=== PATIENT | male | born 2000 | race Caucasian/White ===

== ENCOUNTER 2021-08-01 12:03 | Emergency (ER) | payer SELFPAY ==
[~2021-08-01] VITALS: Ht 167.6 cm; Wt 70.3 kg
[2021-08-01 12:21] VITALS: BP 140/81
--- NOTE | 2021-08-01 13:18 | NUR ---
PT AMB TO [facility]
--- NOTE | 2021-08-01 13:20 | NUR ---
BIB SELF C/O LEFT FLANK PAIN X 2 DAYS. DENIES N/V/D; SKIN IS PINK/WARM/DRY; AAOX4 WITH EVEN AND STEADY GAIT; LUNGS CLEAR BL; HR EVEN AND REGULAR; PT DENIES ANY FEVER, CP, SOB, OR COUGH AT THIS TIME; PATIENT STATES PAIN OF 5/10 AT THIS TIME.
[2021-08-01] MEDS ORDERED: METH-1681 PO (13:29)
[2021-08-01] MEDS ORDERED: LIDO1ADH47 TP (13:29)
[2021-08-01] MEDS ORDERED: NAPR-54 PO (13:29)
[2021-08-01 13:36] VITALS: BP 140/81
--- NOTE | 2021-08-01 13:37 | NUR ---
Patient discharged with v/s stable. Written and verbal after care instructions given and explained. Patient alert, oriented and verbalized understanding of instructions. Ambulatory with steady gait. All questions addressed prior to discharge. ID band removed. Patient advised to follow up with PMD. Rx of LIDOCAINE, METHOCARBAMOL, NAPROXEN given. Patient educated on indication of medication including possible reaction and side effects. Opportunity to ask questions provided and answered.
== END 2021-08-01 13:37 | disposition home or self-care (01) ==
LOC: MED 12:03
DX: S39.012A Strain of muscle, fascia and tendon of lower back, initial encounter (principal); R30.0 Dysuria; Z79.899 Other long term (current) drug therapy; X58.XXXA Exposure to other specified factors, initial encounter; Y93.89 Activity, other specified; Y92.89 Other specified places as the place of occurrence of the external cause; Y99.8 Other external cause status
CPT/HCPCS: 81002; 99283

== ENCOUNTER 2022-12-09 03:50 | Emergency (ER) | payer SELFPAY ==
[~2022-12-09] VITALS: Ht 165.1 cm; Wt 78.0 kg
[~2022-12-09 03:50] MED LIST: LIDO1ADH47 TP; METH-1681 PO; NAPR-54 PO
[2022-12-09 03:54] VITALS: BP 149/101
--- NOTE | 2022-12-09 04:12 | NUR ---
PT TAKEN TO BED 9
--- NOTE | 2022-12-09 04:18 | NUR ---
Patient A/Ox4, resting in bed, chest rise and fall symmetrical, no s/s of distress.
--- NOTE | 2022-12-09 05:00 | NUR ---
ER physician assessing patient.
[2022-12-09] MEDS ORDERED: HYDROXYZINE HYDROCHLORIDE 25 MG TAB PO STA (05:11)
--- NOTE | 2022-12-09 05:15 | NUR ---
X-Ray at bedside.
--- NOTE | 2022-12-09 06:05 | NUR ---
Patient A/Ox4, resting in bed, chest rise and fall symmetrical, no s/s of distress.
[2022-12-09] MEDS ORDERED: ATA25 PO (06:27)
[2022-12-09 06:36] VITALS: BP 128/81
== END 2022-12-09 06:37 | disposition home or self-care (01) ==
LOC: MED 03:50
DX: R00.2 Palpitations (principal)
CPT/HCPCS: 71045; 99283; Q0092